=== PATIENT | male | born 1970 | race Hispanic/Latino ===

== ENCOUNTER → 2018-09-21 | Outpatient (CLI) | payer BC ==
[~2018-09-21] MED LIST: AMLO1CAP11 PO; ROSU40TA20 PO; iron PO
== END | disposition home or self-care (01) ==
LOC: RAH 08:45
PROVIDERS: ATTEND Family Medicine
DX: M17.12 Unilateral primary osteoarthritis, left knee (principal)
CPT/HCPCS: 73721

== ENCOUNTER 2018-12-06 06:15 | Day surgery (SDC) | payer BC ==
[2018-11-30 12:12] LABS: BASOPHILS % (AUTO) 0.6 % (0.0-5.0); EOSINOPHILS % (AUTO) 5.4 % (0.0-8.0); HEMATOCRIT 43.2 % (42-54); LYMPHOCYTES % (AUTO) 21.2 % (21.0-51.0); MEAN CORPUSCULAR HEMOGLOBIN 24.6 pg (27.0-33.0); MEAN CORPUSCULAR HGB CONC 31.8 g/dL (32.0-36.0); MEAN CORPUSCULAR VOLUME 77.4 fL (79-99); MONOCYTES % (AUTO) 8.7 % (3.0-13.0); NEUTROPHILS % (AUTO) 64.1 % (40.0-77.0); PLATELET COUNT (AUTO) 255 K/uL (130-400); RED BLOOD CELL COUNT(AUTO) 5.58 MIL/uL (4.50-6.20); RED CELL DISTRIBUTION WIDTH 16.7 % (11.0-15.5); WHITE BLOOD COUNT (AUTO) 7.2 K/uL (4.8-10.8)
[2018-11-30 12:21] LABS: CREATININE 0.9 mg/dL (0.5-1.5)
[2018-11-30 12:40] VITALS: BP 124/78
[2018-12-06] VITALS (15 sets, daily range): BP systolic 105–141; BP diastolic 58–83
[~2018-12-06] VITALS: Ht 172.7 cm; Wt 93.4 kg
[~2018-12-06 06:15] MED LIST changes: +AMLO-73 PO; -AMLO1CAP11 PO; +ASPI-449 PO; +ICOS1CAP PO; -ROSU40TA20 PO; +ROSU40TA21 PO; -iron PO
--- NOTE | 2018-12-06 07:00 | NUR ---
POTENTIAL FOR INFECTION: SHAVED LEFT KNEE / LEG PER GERALD HAY FOLLOWED BY WIPING LEFT KNEE / LEG WITH DARIANA: 2% CHLORHEXIDINE GLUCONATE CLOTH PATIENTS PRE-OP SKIN PREP.
[2018-12-06] MEDS ORDERED: BUPIVACAINE/PF 0.25% 30ML VIAL IJ ONE (07:21)
[2018-12-06] MEDS ORDERED: LIDOCAINE HCL 1% 20 ML VIAL ONE (07:21)
[2018-12-06] MEDS: CEFAZOLIN SODIUM 1 GM VIAL ONE ×2 (07:51→08:15)
[2018-12-06] MEDS: LACTATED RINGERS 1000ML 1,000 ML IV SCH ×2 (07:51→08:58)
[2018-12-06] MEDS ORDERED: NEOSTIGMINE 5MG/5ML SYR IV ONE (08:08)
[2018-12-06] MEDS ORDERED: GLYCOPYRROLATE 1 MG/5 ML SYRINGE ONE (08:08)
[2018-12-06] MEDS ORDERED: LIDOCAINE PF 2% 5ML ABBOJECT ONE (08:08)
[2018-12-06] MEDS ORDERED: DEXAMETHASONE SOD PHOSPHATE 10MG/ML 1ML VIAL ONE (08:08)
[2018-12-06] MEDS ORDERED: PROPOFOL 10 MG/ML 20ML VIAL IV ONE (08:08)
[2018-12-06] MEDS ORDERED: MIDAZOLAM HCL 1 MG/ML 2ML VIAL ONE (08:08)
[2018-12-06] MEDS ORDERED: SUCCINYLCHOLINE 200MG/10ML SYR ONE (08:08)
[2018-12-06] MEDS ORDERED: ONDANSETRON HCL 4 MG/2 ML VIAL ONE (08:08)
[2018-12-06] MEDS ORDERED: ROCURONIUM 10MG/1ML SYR 10 MG/ML ML ONE (08:08)
[2018-12-06] MEDS ORDERED: FENTANYL CITRATE PF 50 MCG/1 ML 2ML VIAL ONE ×2 (08:09→08:34)
[2018-12-06] MEDS ORDERED: MEPERIDINE-PF 25 MG/ML SYG ONE ×2 (09:04→09:17)
[2018-12-06] MEDS ORDERED: KETOROLAC TROMETHAMINE 30MG/ML ONE (09:38)
== END 2018-12-06 10:46 | disposition home or self-care (01) ==
LOC: DAH 06:15
PROVIDERS: ATTEND Orthopaedic Surgery
DX: M23.232 Derangement of other medial meniscus due to old tear or injury, left knee (principal); M17.12 Unilateral primary osteoarthritis, left knee; M94.262 Chondromalacia, left knee; E78.00 Pure hypercholesterolemia, unspecified; I10 Essential (primary) hypertension; F15.11 Other stimulant abuse, in remission; Z98.890 Other specified postprocedural states; Z79.899 Other long term (current) drug therapy; Z79.82 Long term (current) use of aspirin; Z72.89 Other problems related to lifestyle; Z87.891 Personal history of nicotine dependence; Z82.49 Family history of ischemic heart disease and other diseases of the circulatory system; Z82.3 Family history of stroke; Z83.3 Family history of diabetes mellitus
CPT/HCPCS: 29881; 36415; 80048; 85025; A4606; A4649 ×2; A4930; A6223; J0330; J0690; J1100; J1885; J2001; J2175 ×2; J2250; J2405; J2704; J2710; J3010 ×2; J3490 ×2; J7120 ×2